=== PATIENT | male | born 1970 | race Caucasian/White ===

== ENCOUNTER 2019-11-12 14:07 | Emergency (ER) | payer OTHER ==
[~2019-11-12] VITALS: Ht 167.6 cm; Wt 72.6 kg
[2019-11-12 14:14] VITALS: Ht 167.6 cm; Wt 72.6 kg
[2019-11-12 17:21] LABS: microscopic required? NO
[2019-11-12 17:27] LABS: PLATELET COUNT 148 x10^3mcL (130-400); RED CELL DISTRIBUTION WIDTH 13.5 % (11.5-14.5)
[2019-11-12 17:29] LABS: BASOPHIL % 0 % (0-2)
[2019-11-12 17:39] LABS: CALCIUM 8.7 mg/dL (8.5-10.1); CARBON DIOXIDE 28.5 mmol/L (21-32); CHLORIDE SERUM 106 mmol/L (98-107); CREATININE SERUM 0.9 mg/dL (0.7-1.3); GFR1 > 60 mL/min; GLUCOSE SERUM 86 mg/dL (74-106); POTASSIUM SERUM 3.9 mmol/L (3.5-5.1); SODIUM SERUM 141 mmol/L (136-145)
[2019-11-12 17:44] LABS: ALBUMIN 3.5 g/dL (3.4-5.0); ALKALINE PHOSPHATASE 71 U/L (46-116); ALT/SGPT 46 U/L (16-63); AST/SGOT 25 U/L (15-37); BILIRUBIN TOTAL 1.28 mg/dL (0.20-1.00); LIPASE 78 IU/L (73-393); TOTAL PROTEIN, SERUM 7.8 g/dL (6.4-8.2)
[2019-11-12 18:12] LABS: UA SPECIFIC GRAVITY 1.015 (1.005-1.035); urine erythrocyte NEGATIVE (NEGATIVE)
[2019-11-12 19:21] VITALS: BP 114/69
== END 2019-11-12 19:35 | disposition home or self-care (01) ==
LOC: ED 14:07
PROVIDERS: Emergency Medicine
DX: K43.9 Ventral hernia without obstruction or gangrene (principal); R19.7 Diarrhea, unspecified; R10.84 Generalized abdominal pain; Z98.890 Other specified postprocedural states
CPT/HCPCS: J1885; J2405; J7030

== ENCOUNTER 2019-12-28 07:10 | Inpatient (IN) | payer BC ==
[~2019-12-28] VITALS: Ht 170.2 cm; Wt 76.4 kg
--- NOTE | 2019-12-28 07:53 | NUR ---
BIB [facility] FROM [facility] [facility]. STATES PT HAS HAD GENERALIZED ABD PAIN AND TENDERNESS ONSET LAST NIGHT, PROGRESSIVING IN SEVERITY. PT HAS HAD NAUSEA AND WRENCHING BUT NO ENEMSIS. IV ESTABLISHED, LAB DRAWN AND SENT. COMFORT MEASURES AND SUPPORTIVE CARE INITIATED.
[2019-12-28 08:09] LABS: BASOPHIL % 0.1 % (0-2); PLATELET COUNT 151 x10^3mcL (130-400); RED CELL DISTRIBUTION WIDTH 13.6 % (11.5-14.5)
--- NOTE | 2019-12-28 08:16 | NUR ---
RETURNED FROM CT. ALL MEDS GIVEN. PENDING URINE COLLECTION AND ACCUCHECK.
[2019-12-28 08:21] LABS: CARBON DIOXIDE 24.6 mmol/L (21-32); CHLORIDE SERUM 106 mmol/L (98-107); CREATININE SERUM 0.9 mg/dL (0.7-1.3); GFR1 > 60 mL/min; GLUCOSE SERUM 91 mg/dL (74-106); SODIUM SERUM 138 mmol/L (136-145)
[2019-12-28 08:36] LABS: ALKALINE PHOSPHATASE 75 U/L (46-116); ALT/SGPT 41 U/L (16-63); AST/SGOT 30 U/L (15-37); HDL CHOLESTEROL 40 mg/dL (40-60); LIPASE 95 IU/L (73-393); MAGNESIUM 2.1 mg/dL (1.8-2.4); T4(THYROXINE) 6.3 ug/dL (4.7-13.3)
--- NOTE | 2019-12-28 08:40 | NUR ---
DODD CATH PLACED. TO CONTINUE PLAN OF CARE.
[2019-12-28 08:48] LABS: microscopic required? NO
[2019-12-28 08:59] LABS: ALBUMIN 3.1 g/dL (3.4-5.0); CHOLESTEROL 111 mg/dL (<200)
[2019-12-28 09:01] LABS: UA SPECIFIC GRAVITY 1.025 (1.005-1.035); urine erythrocyte NEGATIVE (NEGATIVE)
[2019-12-28 09:50] LABS: AMPHETAMINE QUAL UR NONE DETECTED (See below)
--- NOTE | 2019-12-28 12:32 | NUR ---
UPDATE GIVEN TO DR. BARTON. PENDING SURGERY.
--- NOTE | 2019-12-28 13:30 | NUR ---
pt remains stable. sleeping at present. remains asymptomatic for hypo or hypoglycemia.
--- NOTE | 2019-12-28 14:28 | NUR ---
SPOKE WITH ER NURSE RECEIVED REPORT, PER NURSE PT WILL BE GOING TO OR FROM ER AND WILL BE BROUGHT UP TO THE FLOOR AFTER SURGERY.
--- NOTE | 2019-12-28 14:29 | NUR ---
REPORT CALLED TO OTONIEL KRAFT WILL BE GOING TO OR DR ESCOBAR
--- NOTE | 2019-12-28 14:30 | NUR ---
I CALLED OR SPOKE WITH JUAN C SHE CONFIRMED PT IS SCHEDULES FOR SURGERY AT 4PM, PT WILL STAY IN ER TILL OR COMES TO PICK HIM UP
[2019-12-28 19:21] LABS: CALCIUM 7.4 mg/dL (8.5-10.1); CARBON DIOXIDE 25.7 mmol/L (21-32); CHLORIDE SERUM 110 mmol/L (98-107); CREATININE SERUM 0.8 mg/dL (0.7-1.3); GFR1 > 60 mL/min; GLUCOSE SERUM 132 mg/dL (74-106); POTASSIUM SERUM 3.7 mmol/L (3.5-5.1); SODIUM SERUM 142 mmol/L (136-145)
--- NOTE | 2019-12-28 19:40 | NUR ---
RECEIVED PT FROM PACU VIA TASHA, S/P VENTRAL HERNIA REPAIR AND LYSIS OF ADHESIONS. PT IS DROWSY, ORIENTED X4. ABLE TO FOLLOW SIMPLE COMMANDS. NO SOB NOTED, LUNG SOUNDS CTA. O2 SAT=98% ON 3LPM/NC. DENIES CHEST PAIN/PRESSURE, SR ON THE MONITOR. DENIES ABDOMINAL DISCOMFORT AT THIS TIME. BOWEL SOUNDS HYPOACTIVE. ABDOMEN IS ROUND AND SOFT. W/ DRESSING ON THE MID-ABDOMEN (W/ MILD LINEAR STAIN ON THE BOTTOM PART), W/ ABDOMINAL BINDER. W/ AUSTRALIAN 16 DODD CATHETER DRAINING W/ YELLOW COLORED URINE. SIDE RAILS UPX2. CALL LIGHT ON REACH. HOB ELEVATED AT 30 DEG. PRIMARY NURSE HEIKE AT BEDSIDE FOR CONTINUITY OF CARE
[2019-12-28 19:52] VITALS: BP 114/70
[2019-12-28 19:55] VITALS: Ht 170.2 cm; Wt 76.4 kg
--- NOTE | 2019-12-28 20:00 | NUR ---
ATTEMPTING TO PLACE PT ON O2 3L VIA NC BUT PT DE-SATS WHILE HE ASLEEP, PLACED PT BACK ON SIMPLE MASK 6 LITERS AND SPO2 ABLE TO MAINTAIN ABOVE 95 %.
--- NOTE | 2019-12-28 23:20 | NUR ---
PT ASLEEP BUT EASILY AROUSABLE, SWITCHED PT TO NC 3 LITERS, SPO2 ABLE TO MAINTAIN ABOVE 92%.
--- NOTE | 2019-12-29 04:39 | NUR ---
PT C/O OF PAIN TO INCISION SITE 09/03, MORPHINE 1MG VIA IVP ADMINISTERED.
--- NOTE | 2019-12-29 05:00 | NUR ---
PT CALLED AND C/O OF N&V AFTER MORPHINE, PHENERGAN 12.5MG VIA IVP ADMINISTERED.
[2019-12-29 05:44] VITALS: BP 98/57
--- NOTE | 2019-12-29 05:55 | NUR ---
PT ASLEEP BUT EASILY AROUSABLE AFTER MEDICATED WITH MORPHINE AND NAUSEA, SLEPT MOST OF NIGHT, DRESSING TO MID ABD C/D/I, NO ACTIVE BLEEDING NOTED, ABD BINDER IN PLACE, MORNING BLOOD SUGAR:157 MG/DL, ORAL CARE GIVEN, DODD CARE GIVEN, BREATHING EVEN AND UNLABORED ON O2 1L VIA NC, IVF INFUSING WELL, NO DISTRESS NOTED, WILL KEEP TO MONITOR.
[2019-12-29 06:29] LABS: PLATELET COUNT 133 x10^3mcL (130-400)
[2019-12-29 06:39] LABS: CALCIUM 7.6 mg/dL (8.5-10.1); CARBON DIOXIDE 26.5 mmol/L (21-32); CHLORIDE SERUM 109 mmol/L (98-107); CREATININE SERUM 0.8 mg/dL (0.7-1.3); GFR1 > 60 mL/min; GLUCOSE SERUM 135 mg/dL (74-106); POTASSIUM SERUM 4.4 mmol/L (3.5-5.1); SODIUM SERUM 142 mmol/L (136-145)
[2019-12-29 07:04] LABS: BASOPHIL % 0 % (0-2)
--- NOTE | 2019-12-29 07:20 | NUR ---
BEDSIDE HANDOFF REPORT DONE WITH KENNEDY-RN, ALL QUESTIONS ANSWERED AND CONCERNS ADDRESSED.
--- NOTE | 2019-12-29 07:48 | NUR ---
RECEIVED PATIENT FROM QIAN BURROUGHS. PATIENT OBSERVED IN BED, EATING AND TOLERATING CLEAR LIQUID DIET. STATES THAT HE IS FEELING ABDOMINAL PAIN AT THIS TIME. ABDOMINAL BINDER DRY AND INTACT, NO SIGNS OF DRESSING SOILAGE AT THIS TIME. DODD CATHETER INTACT AND DRAINING YELLOW URINE. CALL LIGHT IN REACH, PATIENT AWARE TO CALL FOR STAFF FOR ASSISTANCE. PATIENT ACROSS FROM NURSES STATION.
[2019-12-29 07:59] VITALS: BP 104/64
--- NOTE | 2019-12-29 10:29 | NUR ---
DR DURANT IN TO SEE PATIENT, STATES THAT PATIENT WOULD BE ABOUT TO BE DISCHARGED ONCE PATIENT IS CLEARED BY SURGERY. SPOKE WITH STEP MAAME KNAPP AND AUNT MONTY FERGUSON ABOUT PLAN. CALL LIGHT IN REACH, PATIENT ACROSS FROM NURSES STATION AT THIS TIME.
[2019-12-29 11:29] VITALS: BP 99/60
--- NOTE | 2019-12-29 12:23 | NUR ---
DR ESCOBAR IN TO SEE PATIENT, STATES HE CHANGED ABDOMINAL DRESSING, CLEANSED INCISION WITH BETADINE SOLUTION, AND RE APPLIED ABDOMINAL BINDER. ALSO STATES PATIENT CAN BE ON FULL LIQUID DIET AT THIS TIME AND IF TOLERATED ADVANCE TO REGULAR DIET. ALSO CHANGE IN IV FLUIDS. MOTHER MANPREET AT BEDSIDE AND MADE AWARE. CALL LIGHT IN REACH.
--- NOTE | 2019-12-29 15:55 | NUR ---
PATIENT WITH ASSISTANCE WALKED TO BR, NO BM. PATIENT PLACED UP TO CHAIR. PATIENT CONTINUES TO HAVE COMPLAINTS OF SORENESS AND PAIN. PATIENT ASSISTED BACK TO BED AFTER 5 MINS IN CHAIR. PATIENT ALSO REMINDED TO USE IS, AND SEEN USING IS. CALL LIGHT IN REACH AT THIS TIME.
[2019-12-29 16:36] VITALS: BP 101/60
--- NOTE | 2019-12-29 18:14 | NUR ---
PATIENT IN BED AT THIS TIME, HAS MILD COMPLAINTS OF NAUSEA. PRN PHENERGAN IV GIVEN. NO VOMITTING AT THIS TIME, NO BM. PATIENT SAYS HE WILL WAIT TO EAT DINNER TRAY. WILL ENDORSE TO ONCOMING NURSE. CALL LIGHT IN REACH. PATIENT ACROSS FROM NURSES STATION.
--- NOTE | 2019-12-29 19:15 | NUR ---
RECEIVED REPORT FORM DAY SHIFT NURSE, KENNEDY LAUGHLIN. PT IS AAOX3, DEVELOPMENTALLY DELAYED. ON TELE #26 READING SR W PACS AT 95. DENIES CHEST PAIN/CHEST PRESSURE. PULSES PALPABLE. NO EDEMA NOTED. BREATHING IS EVEN AND UNLABORED ON RA. LUNG SOUNDS CTA. DENIES SOB AT THIS TIME. CONTINOUS PULSE OX READING 96%. IS AT BEDSIDE, ENCOURAGED PT TO USE. PT STATED HE WILL USE IT LATER ON. ABD IS SOFT AND ROUND. BS HYPOACTIVE. DENIES N/V/D AT THIS TIME. DODD CATHETER IN PLACE DRAINING TO GRAVITY YELLOW URINE. DENIES DYSURIA. GENERALIZED WEAKNESS. AMBULATORY WITH ASSIST. SURGICAL INCISIONS NOTED TO MID ABD W SETH, SUTURES, AND SILVER DRSG, CDI. ABD BINDER IN PLACE. PT C/O 6/10 SHARP PAIN ON ABD. WILL MEDICATE PER JAN ORDER. IV TO LAC DRY AND INTACT. NO ERYTHEMA NOTED. BED IN LOWEST POSITION. CALL LIGHT WITHIN REACH. WILL CONTINUE TO MONITOR.
[2019-12-29 20:57] VITALS: BP 128/64
--- NOTE | 2019-12-29 22:06 | NUR ---
PT'S IV TO LAC KINKED. IV DC'D AND NEW IV INSERTED TO LH, FLUSHING WELL. NO ERYTHEMA NOTED. PT C/O 8/10 SHARP ABD PAIN. MEDICATED WITH MORPHINE PER JAN ORDER. WILL REASSESS AND CHECK EFFECTIVENESS. PT IS ALSO C/O NAUSEA, MEDICATED WITH PHENERGAN PER JAN ORDER. WILL REASSESS AND CHECK EFFECTIVENESS. BREATHING IS EVEN AND UNLABORED ON RA. DENIES SOB. BED IN LOWEST POSITION. CALL LIGHT WITHIN REACH. WILL CONTINUE TO .
--- NOTE | 2019-12-30 00:12 | NUR ---
PT RESTING COMFORTABLY IN BED WITH EYES CLOSED, BUT EASILY AROUSABLE WHEN SPOKEN TO. BREATHING IS EVEN AND UNLABORED ON RA. NO RESP DISTRESS NOTED. BED IN LOWEST POSITION. CALL LIGHT WITHIN REACH. WILL CONTINUE TO MONITOR.
--- NOTE | 2019-12-30 02:18 | NUR ---
PT IS RESTING IN BED WITH EYES CLOSED, BUT EASILY AROUSABLE WHEN SPOKEN TO. BREATHING IS EVEN AND UNLABORED ON RA. NO RESP DISTRESS NOTED. SIDE RAILS UP X2. BED IN LOWEST POSITION. WILL CONTINUE TO MONITOR.
--- NOTE | 2019-12-30 02:18 | NUR ---
PT IS SITTING UP AT BEDSIDE, DROWSY. ENCOURAGED PT TO LAY DOWN IN BED, BUT PT STATED HE WAS HOT. ASKED PT IF HE WANTED TO TURN OFF THE HEATER, PT STATED NO. ENCOURAGED PT TO LAY DOWN IN BED SO HE DOES NOT HIT HIS HEAD, PT VERBALIZES HE IS FINE. BED IN LOWEST POSITION. CALL LIGHT WITHIN REACH. SIDE RAILS UP X2. WILL CONTINUE TO MONITOR.
--- NOTE | 2019-12-30 04:21 | NUR ---
PT IS ASLEEP IN BED, BUT EASILY AROUSABLE WHEN SPOKEN TO. NO ACUTE DISTRESS NOTED. WILL CONTINUE TO MONITOR.
[2019-12-30 05:37] VITALS: BP 108/67
[2019-12-30 06:36] LABS: BASOPHIL % 0.2 % (0-2); PLATELET COUNT 135 x10^3mcL (130-400); RED CELL DISTRIBUTION WIDTH 13.9 % (11.5-14.5)
[2019-12-30 06:51] LABS: CALCIUM 7.9 mg/dL (8.5-10.1); CARBON DIOXIDE 29.6 mmol/L (21-32); CHLORIDE SERUM 108 mmol/L (98-107); CREATININE SERUM 0.7 mg/dL (0.7-1.3); GFR1 > 60 mL/min; GLUCOSE SERUM 113 mg/dL (74-106); SODIUM SERUM 141 mmol/L (136-145)
--- NOTE | 2019-12-30 06:58 | NUR ---
PT SLEPT IN INTERVALS THROUGHOUT THE NIGHT AND COMPLIED WITH NURSING CARE WITH NO ACUTE EVENTS OCCURRING THROUGHOUT THE NIGHT. COMFORT AND SAFETY MEASURES MAINTAINED. ALL NEEDS ASSESSED AND ATTENDED TO. WILL CONTINUE TO MONITOR AND ENDORSE CARE TO DAY SHIFT NURSE.
--- NOTE | 2019-12-30 07:11 | NUR ---
RECEIVED REPORT FROM LEONARDO LAUGHLIN. PATIENT RESTING COMFORTABLY IN BED WITH ALL NEEDS MET. IV TO LT HAND IS PATENT AND INFUSING D5 1/2NS W/20 MEQ KCL @ 125 ML/HR. NO REDNESS OR PAIN. TELE # [address] PT DENIES CHEST PAIN. PT ON ROOM AIR. NO C/O SOB AND NO DISTRESS NOTED. ALL QUESTIONS AND CONCERNS ADDRESSED.
--- NOTE | 2019-12-30 09:39 | NUR ---
PT C/O INCISIONAL PAIN. 07/04 PER FLACC. PT REPORTS "IT HURTS REALLY BAD", WHEN ASKED TO RATE PAIN.
[2019-12-30 09:51] VITALS: BP 130/76
--- NOTE | 2019-12-30 10:00 | NUR ---
SPOKE WITH DR DURANT TO INQUIRE ABOUT PAIN MEDICCATION ON DISCHARGE AND ASK IF DODD CAN BE REMOVED. DR DURANT ORDERED TYLENOL FOR PAIN AND STATED THAT DODD MAY BE REMOVED WHEN PATIENT IS DISCHARGED. PT TO DISCHARGE ONCE CLEARED BY DR ESCOBAR.
--- NOTE | 2019-12-30 11:07 | NUR ---
IN TO ASSIST VAULT ATTENDANT YACKSELL WITH BEDBATH. PT TOLERATED IT WELL.
[2019-12-30 13:45] VITALS: BP 116/66
--- NOTE | 2019-12-30 15:14 | NUR ---
SPOKE WITH DR ESCOBAR AND INFORMED HIM ABOUT LAB RESULTS AND PATIENTS STATUS. PER DR ESCOBAR OK TO DC PATIENT FROM SURGERY STANDPOINT. ATTENDING NURSE ALTON MADE AWARE.
--- NOTE | 2019-12-30 16:30 | NUR ---
PT C/O SEVERE NAUSEA AND RETCHING. INSTRUCTED PATIENT THAT I CAN ADMINISTER MEDCATION FOR NAUSEA. PT REFUSED AT FIRST BUT WAS CONVINVCED. PHENERGAN ADMINISTERED (SEE eMAR). WILL REASSESS.
[2019-12-30 18:05] VITALS: BP 148/80
--- NOTE | 2019-12-30 19:01 | NUR ---
DR ESCOBAR IN TO SEE PATIENT AND REQUESTED THAT DRESSING BE CHANGED IMMEDIATELY. INCISION FULLAPPROXIMATED WITH SETH INTACT. SCANT BLEEDING NOTED. NO REDNESS OR ABNORMAL DRAINAGE.
--- NOTE | 2019-12-30 19:25 | NUR ---
RECIEVED PT RESTING IN BED WITH NO ACUTE DISTRESS NOTED AT THIS TIME, ASSESSMENT PERFORMED AT THIS TIME, PT IS A/OX3 TO PERSON PLACE AND TIME, PT HAS HX OF DEVELOPMENTAL DELAY, SPEAKS CELAR ABLE TO MAKE NEEDS KNOWN, PT DENIES PAIN OR SOB ON RA, IV TO THE CDI, NO REDNESS OR SWELLING, TELE 26 SR WITH PACS, ALL NEEDS ATTENDED TO, SAFETY PRECAUTIONS IN PLACE, WILL CONTINUE TO MONITOR
--- NOTE | 2019-12-30 19:44 | NUR ---
REPORT GIVEN TO RANGEL LAUGHLIN. PATIENT SLEEPING COMFORTABLY IN BED WITH ALL NEEDS MET. ALL QUESTIONS AND CONCERNS ADDRESSED. ALL CARES ENDORSED.
[2019-12-30 20:58] VITALS: BP 141/84
--- NOTE | 2019-12-31 00:02 | NUR ---
PT RESTING IN BED WITH NO COMPLAINTS OF N/V AT THIS TIME, PT DENIES PAIN OR SOB, RESPIRATIONS EVEN AND UNLABORED, ALL NEEDS ATTNEDED TO AT THIS TIME, SAFETY PRECATUIONS IN PLACE, WILL CONTINUE TO MONITOR
--- NOTE | 2019-12-31 05:20 | NUR ---
PT REST DURING THE NIGHT WITH ONE EPISODE OF NAUSEA TREATED WITH PHENERGAN TO EFFECT, PT ALSO COMPLAINED OF ONE EPISODE OF PAIN TREATED WITH MORPHINE TO EFFECT, PT VOIDED THREE TIMES SINCE DODD WAS DISCONTINUED, ALL PT NEEDS ATTENDED TO THROUGH NIGHT, SAFETY PRECAUTIONS IN PLACE, WILL MONITOR AND ENDORSE CARE
[2019-12-31 06:04] VITALS: BP 156/82
--- NOTE | 2019-12-31 06:17 | NUR ---
REMOVED OLD DRESSING PAINTED INCISION WITH BETADINE AND REAPPLIED GAUZE AND SECURED IN PLACE, PER ORDER
[2019-12-31 06:42] LABS: BASOPHIL % 0.3 % (0-2); PLATELET COUNT 164 x10^3mcL (130-400); RED CELL DISTRIBUTION WIDTH 13.9 % (11.5-14.5)
[2019-12-31 07:01] LABS: CARBON DIOXIDE 28.6 mmol/L (21-32); CHLORIDE SERUM 104 mmol/L (98-107); CREATININE SERUM 0.7 mg/dL (0.7-1.3); GFR1 > 60 mL/min; GLUCOSE SERUM 128 mg/dL (74-106); POTASSIUM SERUM 4.1 mmol/L (3.5-5.1); SODIUM SERUM 139 mmol/L (136-145)
--- NOTE | 2019-12-31 07:07 | NUR ---
RECEIVED REPORT FROM RANGEL LAUGHLIN. PATIENT RESTING COMFORTABLY IN BED WITH ALL NEEDS MET. IV TO LT HAND IS PATENT AND INFUSING D5 1/2 NS W/ 20 MEQ KCL @ 125 ML/HR. NO REDNESS OR PAIN. TELE # [address] PT DENIES CHEST PAIN. PT ON ROOM AIR. NO C/O SOB AND NO DISTRESS NOTED. PT REPORTS MILD INCISIONAL PAIN BUT REPORTS THE PAIN MEDICATION IS WORKING. ALL QUESTIONS AND CONCERNS ADDRESSED.
[2019-12-31 11:56] VITALS: BP 116/70
--- NOTE | 2019-12-31 14:13 | NUR ---
PT C/O BACK PAIN AND THROAT PAIN. NORCO ADMINISTERED AND PT REPOSITIONED WITH PILLOW UNDER LT SIDE. PT REPORTED REPOSITIONING HELPED. WILL REASSESS.
--- NOTE | 2019-12-31 15:22 | NUR ---
PT AMBULATED IN THE FULLER WITH PHYSICAL THERAPY.
--- NOTE | 2019-12-31 15:49 | NUR ---
DR ESCOBAR IN TO SEE AND ASSESS PATIENT. OPERATIVE SITE ASSESS. SETH INTACT. DR ORDERED TO CLEAN WITH BETADINE AND LEAVE WIRE MESH GATE ASSEMBLER. ABDOMINAL BINDER OK.
--- NOTE | 2019-12-31 16:14 | NUR ---
IN TO SEE PATIENT AND INSERT NEW IV. 22G IV INSERTED TO RFA. FLUIDS RESUMED. PT TOLERATED IT WELL.
[2019-12-31 17:40] VITALS: BP 119/79
--- NOTE | 2019-12-31 19:10 | NUR ---
REPORT RECEIVED FROM DAY SHIFT RN. PATIENT WAS SEEN RESTING COMFORTABLY IN BED. NO DISTRESS NOTED. BREATHING EVEN AND UNLABORED ON ROOM AIR. CONTINUOUS PULSE OX IN PLACE READING 93%. NO SOB OR RESP DISTRESS NOTED. DENIES CHEST PAIN/PRESSURE. C/O ABD PAIN. NORCO GIVEN BY DAY SHIFT RN. RPORTS PAIN IS IMPROVING. ABD BINDER IN PLACE. SURGICAL WOUND NOTED TO MIDLINE OF ABD. JULIUS. SETH IN PLACE W/ BEDATINE. DENIES N/V. IV TO THE RFA INFUSING WELL. PATENT AND INTACT. NO REDNESS OR SWELLING NOTED. COMFORT AND SAFETY MEASURES IN PLACE. BED IS LOCKED AND IN THE LOWEST POSITION. SIDE RAILS UP X2. CALL LIGHT WITHIN REACH. WILL CONTINUE TO MONITOR.
--- NOTE | 2019-12-31 19:30 | NUR ---
MONTIOR TECH CALLED REPORTING DESATING TO 88%. CHECKED ON PATIENT. RESTING IN BED W. EYE CLOSED. BREATHING E/U. EASILY AROUSABLE BY VERBAL STIMULI. DENIES SOB. CHECKED PULS OX SENSOR. SATING WELL NOW AT 93%. WILL CONTINUE TO MONITOR.
--- NOTE | 2019-12-31 19:36 | NUR ---
REPORT GIVEN TO FIORELLA LAUGHLIN. PATIENT RESTING COMFORTABLY IN BED WITH ALL NEEDS MET. ALL QUESTIONS AND CONCERNS ADDRESSED. ALL CARES ENDORSED.
--- NOTE | 2019-12-31 22:13 | NUR ---
C/O 9/10 CHEST PAIN. PATIENT REPORTS IT FEELS LIKE ACID REFLUX. NO MEDS FOR ACID REFLUX. NOTIFIED DR DURANT. RECEIVED NEW ORDERS. WILL INPUT AND CARRY OUT ORDERS.
--- NOTE | 2019-12-31 22:39 | NUR ---
MYLANTA GIVEN FOR NISSA REFLUX PAIN 05/04. AFTER ADMINISTRATION PATIENT FELT NAUSEATED. NASUEA IMPROVED AFTER A COUPLE MINUTES AND PATIENT REPORTS RELIEF OF ACID REFLUX. NO DISTRESS NOTED. DENIES PAIN NOTED. SAFETY MEASURES IN PLACE. CALL LIGHT IS WITHIN REACH. WILL CONTINUE TO MONITOR.
--- NOTE | 2019-12-31 22:50 | NUR ---
EMPTIED 450 ML OF MYLES URINE FROM URINAL. PATIENT ACCIDENTALLY VOIDED ON BED WELL. ANGELO PADILLA, CHANGED BED LINENS. NO DISTRESS NOTED. BREATHING EVEN AD UNLABORED ON RA. DENIES N/V AND DENIES PAIN. SAFETY MEASURES IN PLACE. IVF INFUSING WELL. CALL LIGHT IS WITHIN REACH. WILL CONTINUE TO MONITOR.
[2019-12-31 23:00] VITALS: BP 128/80
--- NOTE | 2020-01-01 03:16 | NUR ---
RESTING IN BED COMFORTABLY. NO DISTRESS NOTED. BREATHING E/U ON ROOM AIR. NO SOB OR RESP DISTRESS NOTED. DENIES PAIN. IVF INFUSING WELL. SAFETY MEASURES IN PLACE. CALL LIGHT IS WITHIN REACH. WILL CONTINUE TO MONITOR.
--- NOTE | 2020-01-01 06:21 | NUR ---
RESTED IN INTERVALS THROUGHOUT THE NIGHT. NO DISTRESS NOTED. NO ACUTE CHANGES NOTED. BREATHING E/U ON ROOM AIR. CONTINUOUS PULSE OX IN PLACE. NO C/O PAIN. DENIES N/V AT THIS TIME. IV TO THE RFA INFUSING WELL. PATENT AND INTACT. ABD MIDLINE INCISION W/ SETH INTACT; ABD BINDER IN PLACE. ALL NEEDS AND CONCERNS ADDRESSED. SAFETY MEASURES IN PLACE. CALL LIGHT IS WITHIN REACH. WILL ENDORSE CARE TO DAY SHIFT RN.
[2020-01-01 06:31] VITALS: BP 130/86
--- NOTE | 2020-01-01 07:20 | NUR ---
SEEN AOX4, NOT IN DISTRESS, TELE 26, NSR, TROP (-), PALPABLE PULSES, TRACE BLE EDEMA, CTA ON BLF, + BS, LAST BM 12/30/19, VOIDS WITH NO DYSURIA, GENERALIZED WEAKNESS, FULL ROM, AMBULATORY WITH ASSIST, VERTICAL ABD INSICION AT MIDLINE WITH SUTURE AND SETH IN PLACE, WITH ABDOMINAL BINDER SECURED, CDI, NO SIGNS OF INFECTION, NO PAIN AT THIS TIME, IV INTACT AND PATENT INFUSING AT 125CC/HR TO RFA. NO REDNESS OR INFILTRATION. CALL LIGHT WITHIN REACH. BED AT LOWEST POSITION.
[2020-01-01 09:18] VITALS: BP 118/84
--- NOTE | 2020-01-01 10:15 | NUR ---
SPOKE WITH DR DURANT REGARDING PATIENT'S DISCHARGE. PER DR DURANT, PATIENT WAS SUPPOSED TO BE DISCHARGED 2 DAYS AGO, BUT WE WERE WAITING FOR PT. ALSO MADE AWARE REGARDING DIPHENOXYLATE AND ONDANSETRON MEDICATION TO BE DISCONTINUED AT DISCHARGE BUT BOTH MEDICATIONS WERE NOT ON CHART. PER DR DURANT, IT CAN BE DISCONTINUED BUT MEDICATIONS ARE NOT ON CHART.
--- NOTE | 2020-01-01 10:37 | NUR ---
SPOKE WITH REE MARTINEZ, MOTHER OF PATIENT AND HERNAN FELTON , RN AT [facility]. PER HERNAN, PATIENT HAD DIPHENOXYLATE AND ONDANSETRON RECORD IN THEIR HOME CARE ALTHOUGH IT IS NOT ACTIVELY GIVEN. HE WAS DISCHARGED LAST OCTOBER WITH IT. PER HERNAN, SHE IS REQUESTING TO HAVE IT DISCONTINUED SINCE PATIENT ISN'T CURRENTLY USING IT. INSTRUCTED HERNAN TO CALL BACK AND FAX MEDICATION DETAILS. PER HERNAN, SHE WILL SOON SHE GETS THE RECORD.
--- NOTE | 2020-01-01 10:48 | NUR ---
RECEIVED CALL FROM [employer] WORKER [employer]. PATIENT O2 SATURATION IN LOW 80S. ADMINISTERED O2 VIA NC AT 1LPM. O2 SAT 97%
--- NOTE | 2020-01-01 11:13 | NUR ---
SPOKE WITH CHRYSTAL SIMON FROM [facility] WITH [facility], PER CHRYSTAL , SHE CANNOT FAX MEDICATION BUT SHE CAN JUST RELAY IT. FOLLOWING ARE THE MEDICATIONS: DIPHENOXYLATE-ATROP 2.5-0 MG, 1 TAB PO QID PRN FOR DIARRHEA, ONDANSETRON 4MG 1 TAB UNDER TONGUE PRN Q8H FOR NAUSEA.
--- NOTE | 2020-01-01 11:19 | NUR ---
LISTED ONDANSETRON AND DIPHENOXYLATE ATROP IN MED RECONCILIATED LIST. DR DURANT MADE AWARE TO DISCONTINUE BOTH DRUGS. PER DR. DURANT, HE HAS NO PROBLEM DISCONTINUING MEDICATION BUT BOTH DRUGS WERE NOT ON THE HOME MED LIST CHART.
--- NOTE | 2020-01-01 12:22 | NUR ---
PATIENT COMPLAINED OF SORE THROAT. INSTRUCTED PATIENT TO KEEP CEPACOL UNDER TONGUE SO HE WON'T CHOKE ON IT. PATIENT VERBALIZED UNDERSTANDING.
[2020-01-01 12:34] VITALS: BP 116/81
[2020-01-01 15:56] VITALS: BP 116/81
--- NOTE | 2020-01-01 17:06 | NUR ---
PHYSICAL THERAPY DAILY NOTES CO-SIGN All documentation done by the Cover Stripper for 01/01/20 has been reviewed. I agree with the documentation. Reviewed/Co-Signed by: Jacob Rousseau PT Documentation Done by:KARI BLACK PTA
--- NOTE | 2020-01-01 17:18 | NUR ---
DISCHARGE PAPER SIGNED BY MOTHER MICHELLE. PER MOTHER, PATIENT'S BELONGINGS ARE PACKED AND PHONE IS WITH MOTHER.
[2020-01-01 17:44] VITALS: BP 117/87
--- NOTE | 2020-01-01 18:30 | NUR ---
IV DISCONNECTED. CATHETER INTACT. NO REDNESS OR INFILTRATION. TELE MONITOR 26 REMOVED AND GIVEN TO KATIA.
--- NOTE | 2020-01-01 18:38 | NUR ---
REPORT GIVEN TO QIAN RING AT [facility].
--- NOTE | 2020-01-01 18:43 | NUR ---
PATIENT DISCHARGED PER [facility] BY [facility]. BELONGINGS WITH PATIENT.
== END 2020-01-01 19:06 | DRG 336 ==
LOC: ED 07:10 → DU 10:16
PROVIDERS: Anesthesiology; Emergency Medicine; Surgery; ADMIT Internal Medicine
PROC: 0DBU0ZZ Excision of Omentum, Open Approach (ICD-10-PCS; 2019-12-28)
PROC: 0DN80ZZ Release Small Intestine, Open Approach (ICD-10-PCS; 2019-12-28)
PROC: 0WQF0ZZ Repair Abdominal Wall, Open Approach (ICD-10-PCS; principal; 2019-12-28 16:00)
DX: K43.0 Incisional hernia with obstruction, without gangrene (principal); E46 Unspecified protein-calorie malnutrition; K66.0 Peritoneal adhesions (postprocedural) (postinfection); Q90.9 Down syndrome, unspecified; F70 Mild intellectual disabilities; E03.9 Hypothyroidism, unspecified; E66.9 Obesity, unspecified; Z68.25 Body mass index [BMI] 25.0-25.9, adult
CPT/HCPCS: 36600; 82962; 83880; 97110-GP; 97116-GP; 97530-GP; G0378; G0480; J0330; J0690; J1170; J1815; J2270; J2405; J2550; J2704; J2710; J3010; J3480; J3490; J7030; J7042; J7120; Q0092